=== PATIENT | male | born 1985 | race Caucasian/White ===

== ENCOUNTER 2022-05-01 12:05 | Emergency (ER) | payer BC ==
[~2022-05-01] VITALS: Ht 180.3 cm; Wt 92.3 kg
[2022-05-01] MEDS ORDERED: CLAR10CA3 PO (12:12)
[2022-05-01] MEDS ORDERED: LIDOCAINE 2% MDV 20ML VIAL SC ONE (15:10)
[2022-05-01] MEDS ORDERED: NEOSPORIN OINT 0.9 GM PKT TOP ONE (15:55)
[2022-05-01] MEDS ORDERED: CEPH500C PO (15:57)
[2022-05-01 16:08] VITALS: BP 158/96
== END 2022-05-01 16:12 | disposition home or self-care (01) ==
LOC: M ED 12:05
DX: S61.223A Laceration with foreign body of left middle finger without damage to nail, initial encounter (principal); W26.8XXA Contact with other sharp object(s), not elsewhere classified, initial encounter; Y92.018 Other place in single-family (private) house as the place of occurrence of the external cause; J30.2 Other seasonal allergic rhinitis; Z91.030 Bee allergy status; Z79.899 Other long term (current) drug therapy; F17.200 Nicotine dependence, unspecified, uncomplicated

== ENCOUNTER → 2023-09-13 | Outpatient (REF) | payer BC ==
[~2023-09-13] MED LIST: CEPH500C PO; CLAR10CA3 PO
[2023-09-13 12:56] LABS: HEMOGLOBIN 16.1 g/dl (13.5-17.5); MEAN CORPUSCULAR HEMOGLOBIN 31.1 pg (27.0-33.0); MEAN CORPUSCULAR HGB CONC 33.5 g/dl (32.0-36.5); MEAN CORPUSCULAR VOLUME 92.7 fl (80.0-96.0); PLATELET COUNT, AUTOMATED 353 10^3/uL (150-450); RED BLOOD COUNT 5.18 10^6/uL (4.30-6.10)
[2023-09-13 13:02] LABS: ALBUMIN 4.4 G/DL (3.2-5.2); ALKALINE PHOSPHATASE 70 U/L (46-116); ALT/SGPT 79 U/L (7.0-40); AST/SGOT 39 U/L (<34); BILIRUBIN,TOTAL 0.4 MG/DL (0.3-1.2); BLOOD UREA NITROGEN 16 MG/DL (9-23); CALCIUM LEVEL 9.6 MG/DL (8.5-10.1); CARBON DIOXIDE LEVEL 26 MMOL/L (20-31); CHLORIDE LEVEL 104 MMOL/L (98-107); CHOLESTEROL LEVEL 286 MG/DL (<200); CHOLESTEROL RISK RATIO 3.34 (<5); CREATININE FOR GFR 0.91 MG/DL (0.70-1.30); GLOMERULAR FILTRATION RATE > 60.0 (>60); GLUCOSE, FASTING 101 MG/DL (60-100); HDL CHOLESTEROL 85.5 MG/DL (>40); LDL CHOLESTEROL 173.9 MG/DL (<100); NON-HDL-C 200.5 MG/DL; POTASSIUM SERUM 4.6 MMOL/L (3.5-5.1); SODIUM LEVEL 138 MMOL/L (136-145); TOTAL PROTEIN 7.6 G/DL (5.7-8.2); TRIGLYCERIDES LEVEL 133 MG/DL (<150)
[2023-09-13 13:03] LABS: FOLATE > 24.0 NG/ML (>5.4)
[2023-09-13 13:04] LABS: VITAMIN B12 LEVEL 675 PG/ML (211-911)
[2023-09-13 13:27] LABS: CREATININE, URINE 121.9 MG/DL
== END ==
LOC: M SFHCADAM 09:53
PROVIDERS: ATTEND Physician Assistant
DX: I10 Essential (primary) hypertension (principal); Z13.220 Encounter for screening for lipoid disorders; Z13.1 Encounter for screening for diabetes mellitus; F10.90 Alcohol use, unspecified, uncomplicated; F17.210 Nicotine dependence, cigarettes, uncomplicated